=== PATIENT | male | born 1955 | race Caucasian/White ===

== ENCOUNTER → 2022-03-03 | Outpatient (CLI) | payer OTHER ==
--- NOTE | 2022-03-03 09:55 | Diagnostic Imaging Report ---
PROCEDURE: MR imaging abdomen without contrast with MRCP sequences. TECHNIQUE: Multiplanar, multisequence MR imaging of the abdomen was performed without contrast. Dedicated MRCP sequences with three-dimensional reformats were also obtained and provided. DATE: March 03, 2022. INDICATION: 66-year-old male, abdominal pain. Concern for pancreatic abnormality. COMPARISON: None available for review at time of dictation. FINDINGS: There are limitations for assessment of the abdominal parenchymal organs, evaluation for neoplasm, and assessment of the vasculature given the lack of intravenous contrast. The liver is unremarkable in size and contour. There is no diffuse loss of signal throughout the liver on the out of phase images to suggest diffuse fatty infiltration of the liver. Based on noncontrast T1 and T2-weighted sequences, there is no identified liver lesion. The gallbladder is unremarkable. There is no intrahepatic or extrahepatic bile duct dilation. There is conventional pancreatic ductal anatomy. The main pancreatic duct is not abnormally dilated. There is no abnormal dilated pancreatic ductal side branch. There is a 3 mm cystic lesion in the tail of the pancreas on axial series 5 image 20. There is a predominantly T2 hyperintense lesion in the pancreatic head measuring 1.7 x 1.4 x 1.4 cm in size with a more central T2 hypointense round area of signal. There is no evidence of acute pancreatitis or evidence of chronic pancreatitis. The spleen is normal in size. The adrenal glands are unremarkable. There are T2 hyperintense right and left renal lesions not well characterized on noncontrast MRI. The largest is in the inferior pole of the right kidney on coronal image 7 measuring 2.1 cm in size. There is no hydronephrosis. The visualized portions of the intestinal tract are not distended. IMPRESSION: 1. Predominantly cystic-appearing lesion in the pancreatic head measuring 1.7 x 1.4 x 1.4 cm in size with a central rounded area of low T2 signal. Although this may potentially reflect a side branch type IPMN or serous or mucinous neoplasm, particularly given the presence of the central T2 hypointense signal, internal solid components are a consideration. There is limited assessment for internal enhancement of the lesion given lack of post contrast imaging. Dedicated pre and post contrast MRI or CT utilizing pancreatic mass protocol is recommended for further assessment. 2. No dilation of the main pancreatic duct or abnormally dilated pancreatic ductal side branch. 3. No evidence of acute or chronic pancreatitis. Dictated by: Dictated on workstation # [id number]
== END ==
LOC: RAD 08:00
PROVIDERS: ATTEND Family Medicine
DX: K86.9 Disease of pancreas, unspecified (principal)
CPT/HCPCS: 74181